=== PATIENT | female | born 1990 | race Caucasian/White ===

== ENCOUNTER 2022-06-17 19:49 | Emergency (ER) | payer MEDICAID ==
[~2022-06-17] VITALS: Ht 167.6 cm; Wt 108.0 kg
[2022-06-17 20:00] VITALS: BP 125/82
== END 2022-06-18 03:17 | disposition left against medical advice (07) ==
LOC: ER 19:49
DX: Z53.21 Procedure and treatment not carried out due to patient leaving prior to being seen by health care provider (principal)
CPT/HCPCS: 93005